=== PATIENT | female | born 1980 | race Caucasian/White ===

== ENCOUNTER → 2024-09-15 | Outpatient (CLI) | payer BC ==
--- NOTE | 2024-09-15 10:35 | XR ---
EXAMINATION TYPE: XR chest 2V DATE OF EXAM: 09/15/2024 10:29 AM COMPARISON: None. CLINICAL INDICATION: Female, 43 years old with history of R42 M62.81 I48.92, physical TECHNIQUE: XR chest 2V view(s) obtained. FINDINGS: The heart size is normal. The pulmonary vasculature is normal. The lungs are clear. IMPRESSION: 1. No acute pulmonary process. [facility], , 09/15/2024 10:32 AM
== END | disposition home or self-care (01) ==
LOC: LABWHC1 10:00
DX: I48.92 Unspecified atrial flutter (principal); M62.81 Muscle weakness (generalized); R42 Dizziness and giddiness
CPT/HCPCS: 71046